=== PATIENT | female | born 1980 | race Caucasian/White ===

== ENCOUNTER 2018-07-07 18:15 | Outpatient (CLI) | payer MEDICAID ==
[~2018-07-07] VITALS: Ht 175.3 cm; Wt 100.6 kg
[2018-07-07 18:39] VITALS: Ht 175.3 cm; Wt 100.6 kg
[2018-07-07 18:40] VITALS: BP 142/88; PULSE 85; RESP 18
[2018-07-07] MEDS ORDERED: PNV11TAB PO (18:41)
--- NOTE | 2018-07-08 03:53 | PN ---
Triage Information Date/Time 07/08/18 Reason for visit: PIH Weeks of Gestation 36w2d /Para Diabetes: none Hypertention: induced Objective Vital Signs Date Temp Pulse Resp B/P (MAP) Pulse Ox O2 O2 Flow FiO2 Time Delivery Rate 07/07/18 98.9 85 18 142/88 18:40 (106) Heart Rate: 140's Heart Rate Comments CAT I Contractions: None Results/Medications Result Diagram: 07/07/18 1842 07/07/18 1842 Results 24 hrs Laboratory Tests Test 07/07/18 18:35 07/07/18 18:42 Urine Color YELLOW Urine Clarity SLIGHTLY CLOUDY A Urine pH 7.0 Urine Specific Nelson 1.005 Urine Ketones NEGATIVE Urine Nitrite NEGATIVE Urine Bilirubin NEGATIVE Urine Urobilinogen NEGATIVE Urine Leukocyte Esterase TRACE A Urine Microscopic RBC 2 Urine Microscopic WBC 4 Urine Squamous Epithelial Cells MANY A Urine Bacteria MANY A Urine Hemoglobin NEGATIVE Urine Glucose NEGATIVE Urine Total Protein NEGATIVE White Blood Count 8.1 Red Blood Count 3.79 L Hemoglobin 11.9 L Hematocrit 35.0 L Mean Corpuscular Volume 92.3 Mean Corpuscular Hemoglobin 31.4 Mean Corpuscular Hemoglobin Concent 34.0 Red Cell Distribution Width 13.3 Platelet Count 244 Mean Platelet Volume 9.6 Immature Granulocytes % 0.900 H Neutrophils % 78.9 H Lymphocytes % 12.7 L Monocytes % 6.7 Eosinophils % 0.6 Basophils % 0.2 Nucleated Red Blood Cells % 0.0 Immature Granulocytes # 0.070 H Neutrophils # 6.4 Lymphocytes # 1.0 Monocytes # 0.5 Eosinophils # 0.1 Basophils # 0.0 Nucleated Red Blood Cells # 0.0 Prothrombin Time 12.5 Prothrombin Time Ratio 1.0 INR International Normalized Ratio 0.92 Activated Partial Thromboplast Time 25.5 Fibrinogen 472.0 H Sodium Level 139 Potassium Level 3.4 L Chloride Level 108 Carbon Dioxide Level 24 Anion Gap 7 Blood Urea Nitrogen 8 Creatinine 0.45 Est Glomerular Filtrat Rate mL/min > 60 Glucose Level 115 Uric Acid 4.2 Calcium Level 9.2 Total Bilirubin 0.3 Direct Bilirubin 0.00 Indirect Bilirubin 0.3 Aspartate Amino Transf (AST/SGOT) 22 Alanine Aminotransferase (ALT/SGPT) 16 Alkaline Phosphatase 103 Total Protein 6.4 Albumin 3.3 Globulin 3.10 Albumin/Globulin Ratio 1.06 Imaging Results BPP 09/15 CATARINA 10.6 Disposition: Discharge Assessment/Plan A IUP 36w2d R/o PIH P RTH in 3days for f/u JULIANNA SAHA MD July 08, 2018 03:53
--- NOTE | 2018-07-08 03:59 | TRIAGE ---
OB Triage Datetime Report Generated by CPN: 07/08/2018 03:59 Datetime: 07/07/2018 21:51 Labor Evaluation Frequency: IRREGULAR Monitor Mode: External Duration (sec)2399: 40-90 Quality: Mild Pattern: Normal: <= 5 Contractions in 10 Minutes Resting Tone Lantry: Relaxed Heart Rate FHR Baseline Rate: 130 Monitor Mode: External US Variability: Moderate 6-25 bpm Accelerations: 15X15 Decelerations: None Category: Category I Datetime: 07/07/2018 21:01 Labor Evaluation Frequency: IRREGULAR Monitor Mode: External Duration (sec)2399: 40-70 Quality: Mild Pattern: Normal: <= 5 Contractions in 10 Minutes Resting Tone Lantry: Relaxed Heart Rate FHR Baseline Rate: 130 Monitor Mode: External US Variability: Moderate 6-25 bpm Accelerations: None Decelerations: None Category: Category I Datetime: 07/07/2018 20:13 Stage of : OB Triage Datetime: 07/07/2018 20:00 Labor Evaluation Frequency: X1 Monitor Mode: External Duration (sec)2399: 80 Quality: Mild Pattern: Normal: <= 5 Contractions in 10 Minutes Resting Tone Lantry: Relaxed Monitor Mode: External US Comments: FHR INDETERMINATE. PT STATES BABY IS MOVING A LOT. Datetime: 07/07/2018 19:00 Labor Evaluation Frequency: NONE Monitor Mode: External Resting Tone Lantry: Relaxed Heart Rate FHR Baseline Rate: 135 Monitor Mode: External US Variability: Moderate 6-25 bpm Accelerations: 15X15 Decelerations: None Category: Category I Datetime: 07/07/2018 18:22 Stage of : OB Triage Assessment Type: Triage Maternal Assessment Level of Consciousness: Fully Conscious DTR's/Clonus: DTRs 2+; No Clonus Headache: Denies Blurred Vision: No Respiratory Effort: Unlabored; Regular Rhythm; Equal Expansion Breath Sounds, Left: Clear and Equal Breath Sounds, Right: Clear and Equal Nausea/Vomiting: Denies RUQ Epigastric Pain: Denies Facial Edema: None Temperature Route: Axillary Fall Risk Assessment History of Falling: (0) No Secondary Diagnosis: (0) No Ambulatory Aid: (0) Bedrest/Nurse Assist IV Therapy: (0) No Gait: (0) Normal/Bedrest/Immobile Mental Status: (0) Oriented to Own Ability Fall Score: 0 Fall Risk Score Definition: No Risk: No action required Labor Evaluation Frequency: 0 Monitor Mode: External Pattern: Normal: <= 5 Contractions in 10 Minutes Resting Tone Lantry: Relaxed Heart Rate FHR Baseline Rate: 135 Monitor Mode: External US Variability: Moderate 6-25 bpm Accelerations: 10X10 Decelerations: None Category: Category I Pain Assessment Pain Scale: 0 Pain Presence: None/Denies Pain Type: N/A Pain Goal: 3 Pain Relief Measures: Comfort Measures Datetime: 07/07/2018 18:20 EGA: 36.2 Datetime: 07/07/2018 18:18 Time of Arrival: 07/07/2018 18:00 Arrived By: Ambulatory Arrived From: Home Chief Complaint: GA 36.2 WKS - REFERRED FROM OFFICE TO R/O PIH, DENIES EPIGASTRIC PAIN, HAD A SMALL H/A AND BLURRY VISION EARLIER TODAY. DENIES LEAKING, BLEEDING OR UC'S Movement: Present Contractions: Denies/Absent Rupture of Membranes: Denies Vaginal Bleeding: None Vaginal Discharge: Denies Recent Sexual Intercouse: Denies Abdominal Trauma: Not Applicable Patient Complaints: Visual Disturbance Time Provider Notified: 07/07/2018 20:13 Provider Notified: MARIA A Initial Plan: MONITOR, JONATHON PANEL
== END 2018-07-07 22:15 | disposition home or self-care (01) ==
LOC: OBT 18:15 → L-D 18:16 → OBT 22:15
PROVIDERS: ATTEND Obstetrics & Gynecology
DX: O13.3 Gestational [pregnancy-induced] hypertension without significant proteinuria, third trimester (principal); O09.513 Supervision of elderly primigravida, third trimester; Z3A.36 36 weeks gestation of pregnancy
CPT/HCPCS: 76818; 80053; 81001; 84560; 85025; 85384; 85610; 85730; Z7500; G0463

== ENCOUNTER 2018-07-09 18:32 | Inpatient (IN) | payer MEDICAID ==
[~2018-07-09] VITALS: Ht 175.3 cm; Wt 100.7 kg
[~2018-07-09 18:32] MED LIST: PNV11TAB PO
[2018-07-09 18:41] VITALS: BP 164/88; PULSE 82; RESP 18
[2018-07-09 18:42] VITALS: Ht 175.3 cm; Wt 100.7 kg
--- NOTE | 2018-07-09 21:18 | HP ---
Date/Time of Note Date/Time of Note DATE: 07/09/18 TIME: 21:08 OB - History Hx of Present Free Text/Dictation 38 y.o. G1 with an IUP at 36w 4d who came in today for a f/u of PIH. Her 2st BP was 164/88 but the rest have been more in the 130-140's/80's. Pt has no WIN's, visual changes or epigastric pain. She was sent back for f/u BP's lab work but a 24 hour urine was not ordered. Pt's bP's during care had SBP's in the 130-140's and DBP's in the 80's. Pt's baby is breech and she has a large 16 cm right subserosal fibroid. Estimated Due Date: Aug 02, 2018 : 1 Para: 0 Care: Good Care Ultrasounds: Abnormal US findings (breech, 16 cm right subserosal fibroid) Obstetrical Complications: Gestational Hypertension (possible HTN all the time.) Medical Complications: Cardiovascular (Possible pregestational HTN.) Past Family/Social History * Past Medical, Surgical, Family and Obstetric Histories reviewed from chart. OB Admission Exam Vital Signs Vital Signs Vital Signs Date Temp Pulse Resp B/P (MAP) Pulse Ox O2 O2 Flow FiO2 Time Delivery Rate 07/09/18 98.3 82 18 164/88 Room Air 18:41 (113) Physical Exam HEENT: WNL Heart: Rhythm Normal Lungs: Clear Abdomen: WNL Extremities: Normal Reflexes: Normal Effacement: Other (deferred) Membranes: Intact Heart Rate: 120's Accelerations: Accelerations Present Decelerations: Prolonged Decelerations (all was fine but then pt had a decel to 60 bpm for at least a minute and possibly longer, as contact was lost at that point.) Varibility: Moderate Contractions on Admission: >10 Minutes Apart Last 72 hours Lab Results CBC & BMP 07/09/18 19:01 Liver Function Test 07/09/18 19:01 Alanine Aminotransferase (ALT/SGPT) 18 Albumin 3.3 Alkaline Phosphatase 113 Aspartate Amino Transf (AST/SGOT) 22 Direct Bilirubin 0.00 Total Protein 6.8 OB Assessment/Plan Other Assessment: Single prolonged decel. Mild PIH. Other plan: Continued observation overnight. Will start her 24 hour urine collection. LORI WALLS MD Jul 09, 2018 21:18
--- NOTE | 2018-07-10 01:35 | TRIAGE ---
OB Triage Datetime Report Generated by CPN: 07/10/2018 01:35 Datetime: 07/09/2018 20:55 Arrived From: Home Movement: Present Rupture of Membranes: Denies Vaginal Bleeding: None Vaginal Discharge: Denies Recent Sexual Intercouse: Denies Abdominal Trauma: Not Applicable Provider Notified: REIHE Datetime: 07/09/2018 20:52 Monitor Mode: External US Datetime: 07/09/2018 20:11 Monitor Mode: External US Datetime: 07/09/2018 20:10 Monitor Mode: External Datetime: 07/09/2018 20:08 Monitor Mode: External US Datetime: 07/09/2018 20:07 Monitor Mode: External Monitor Mode: External US Datetime: 07/09/2018 20:05 Interventions: Oxygen Applied Monitor Mode: External US Comments: o2 applied by c. placido RN Datetime: 07/09/2018 20:03 Monitor Mode: External US Datetime: 07/09/2018 20:02 Interventions: Side to Side Monitor Mode: External US Decelerations: Variable Datetime: 07/09/2018 19:39 Monitor Mode: External Monitor Mode: External US Datetime: 07/09/2018 19:37 Monitor Mode: External US Datetime: 07/09/2018 19:34 Monitor Mode: External Monitor Mode: External US Datetime: 07/09/2018 19:33 Monitor Mode: External US Datetime: 07/09/2018 19:11 Time of Arrival: 07/09/2018 18:29 EGA: 36.4 Arrived By: Ambulatory Arrived From: Home Chief Complaint: here for follow up PIH work up Movement: Present Contractions: Denies/Absent Rupture of Membranes: Denies Vaginal Bleeding: None Vaginal Discharge: Denies Recent Sexual Intercouse: Denies Abdominal Trauma: Not Applicable Patient Complaints: None Time Provider Notified: 07/09/2018 19:30 Provider Notified: KAVITA Initial Plan: EFM, BPP/CATARINA, PIH LABS - orders given by Dr. Pierre on 07/07/18 Datetime: 07/09/2018 19:08 Stage of : OB Triage Temperature Route: Oral Pain Scale: 0 Pain Presence: None/Denies Pain Type: N/A Datetime: 07/09/2018 19:04 Monitor Mode: External US Datetime: 07/09/2018 18:53 Assessment Type: Triage Level of Consciousness: Fully Conscious DTR's/Clonus: DTRs 2+; No Clonus Headache: Denies Blurred Vision: No Respiratory Effort: Unlabored; Regular Rhythm; Equal Expansion Breath Sounds, Left: Clear and Equal Breath Sounds, Right: Clear and Equal Nausea/Vomiting: Denies RUQ Epigastric Pain: Denies Lower Extremities Edema: None Degree: None Upper Extremities Edema: None Degree: None Facial Edema: None History of Falling: (0) No Secondary Diagnosis: (0) No Ambulatory Aid: (0) Bedrest/Nurse Assist IV Therapy: (0) No Gait: (0) Normal/Bedrest/Immobile Mental Status: (0) Oriented to Own Ability Fall Score: 0 Fall Risk Score Definition: No Risk: No action required Datetime: 07/09/2018 18:39 Stage of : OB Triage Datetime: 07/07/2018 18:22 Fall Score: 0 Fall Risk Score Definition: No Risk: No action required Datetime: 07/07/2018 18:20 EGA: 36.2 Movement: Present Contractions: Denies/Absent Rupture of Membranes: Denies Recent Sexual Intercouse: Denies Abdominal Trauma: Not Applicable
[2018-07-10] MEDS ORDERED: CARBOPROST 250 MCG INJ ONE (07:00)
[2018-07-10] MEDS ORDERED: PHENYLephrine (100 MCG/ML) 10ML SYG ONE (07:00)
[2018-07-10] MEDS ORDERED: AL HYDROX/MG HYDROX/SIMETH 30 ML CUP PO PRN (07:00)
[2018-07-10] MEDS ORDERED: ACETAMINOPHEN 500 MG TAB PO PRN (07:00)
[2018-07-10] MEDS: PRENATAL VITAMIN PO SCH (08:57)
[2018-07-10] MEDS: FERROUS SULFATE (EC) 325 MG TAB PO SCH (08:57)
[2018-07-10] MEDS: SENNA TAB PO SCH (08:58)
[2018-07-10] MEDS ORDERED: MAGNESIUM SULFATE 4 GM/100 ML 100 ML IVPB ONE ×3 (16:30)
--- NOTE | 2018-07-10 16:32 | QN ---
Documentation Comment 36+wks GA with chronic HTN NSt Reassuring [place] No CTXs Pelvic Deferred BP 150s-170s/90s NO Headache No blurry vision No epigastric pain --->Mg started --->Case D/w and delivery is recommended --->As the position is Breach,She will have a primary c/section -->JANETO AIME US M.D. Jul 10, 2018 16:31
[2018-07-10] MEDS ORDERED: LACTATED RINGER'S 1,000 ML IV SCH (17:00)
[2018-07-10] MEDS: MAGNESIUM SULFATE 20 GM/500 ML 500 ML IV SCH (17:24)
--- NOTE | 2018-07-10 18:01 | QN ---
Documentation Comment D/w the patient doesn't need to have a c/section o emergency base and since she had luch at 1 pm,D/w the c/section will be done at 9 PM As I will leave at 7 PM and Gabby Phillips will assume the care at that time ,then she will perform the c/section AIME US M.D. Jul 10, 2018 18:01
[2018-07-10] MEDS ORDERED: MISOPROSTOL 200 MCG TAB PR PRN ×2 (19:00→23:30)
[2018-07-10] MEDS: LACTATED RINGER'S 1,000 ML IV SCH (19:00)
[2018-07-10] MEDS ORDERED: CEFAZOLIN 2 GM/50 ML (PMX) 50 ML IVPB SCH (19:00)
[2018-07-10] MEDS ORDERED: OXYTOCIN 30 UNITS/LR 500 ML IV PRN ×2 (19:00→23:30)
[2018-07-10] MEDS ORDERED: METHYLERGONOVINE 0.2 MG INJ IM PRN ×2 (19:00→23:30)
[2018-07-10] MEDS ORDERED: CARBOPROST 250 MCG INJ IM PRN ×2 (19:00→23:30)
[2018-07-10] MEDS ORDERED: ONDANSETRON 4 MG INJ IV STA (21:42)
[2018-07-10] MEDS ORDERED: CITRIC ACID/NA CITRATE 30 ML CUP ONE (21:46)
--- NOTE | 2018-07-10 21:53 | PREAC ---
Date/Time of Note Date/Time of Note DATE: 07/10/18 TIME: 21:52 Anesthesia Eval and Record Evaluation Time Pre-Procedure Interview DATE: 07/10/18 TIME: 21:52 Age 38 Sex female NPO: 8 hrs Preoperative diagnosis single live ; severe PIH Planned procedure primary c section Past Medical History Past Medical History: Includes : : (1), Para: (0), Gestational age: (36.5), PIH Surgery & Anesthesia Issues No known issue Meds Anticoagulation: No Beta Alexandru within 24 hr: No Reason Beta Alexandru not given: Pt. not on B-Alexandru Reported Medications [id number] ( 19) 1 Each Tablet, 1 TAB PO DAILY, TAB 07/07/18 Current Medications Prenat Multivit/ [place]/Iron/Folic Ac () 1 tab DAILY PO Last administered on 07/10/18at 08:57; Admin Dose 1 TAB; Start 07/10/18 at 09:00 Acetaminophen (Tylenol Tab) 650 mg Q4H PRN PO MILD PAIN(1-3)OR ELEVATED TEMP; Start 07/10/18 at 07:00 Al Hydrox/Mg Hydrox/Simethicone (Mag-Al Plus) 30 ml Q4H PRN PO GASTROINTESTINAL UPSET; Start 07/10/18 at 07:00 Ferrous Sulfate (Ferrous Sulfate (Ec)) 325 mg DAILY PO Last administered on 07/10/18at 08:57; Admin Dose 325 MG; Start 07/10/18 at 09:00 Senna (Senokot) 1 tab DAILY PO ; Start 07/10/18 at 09:00 Magnesium Sulfate 500 ml @ 50 mls/hr Q10H IV Last administered on 07/10/18at 17:24; Admin Dose 50 MLS/HR; Start 07/10/18 at 17:00 Lactated Ringer's 1,000 ml @ 75 mls/hr [id number] IV ; Start 07/10/18 at 17:30 Cefazolin Sodium/ Dextrose 50 ml @ 100 mls/hr ONCE IVPB ; Start 07/10/18 at 19:00 Oxytocin/Lactated Ringer's 500 ml @ 0 mls/hr ONCE PRN IV .VAGINAL BLEEDING; Start 07/10/18 at 19:00 Methylergonovine Maleate (Methergine) 0.2 mg ONCE PRN IM .VAGINAL BLEEDING; Start 07/10/18 at 19:00 Carboprost Tromethamine (Hemabate) 250 mcg ONCE PRN IM .VAGINAL BLEEDING; Start 07/10/18 at 19:00 Misoprostol (Cytotec) 1,000 mcg ONCE PRN AR .VAGINAL BLEEDING; Start 07/10/18 at 19:00 Citric Acid/ Sodium Citrate (Bicitra) 30 ml ONCE ONCE PO ; Start 07/10/18 at 22:00; Stop 07/10/18 at 22:01 Metoclopramide HCl (Reglan) 10 mg ONCE ONCE IM ; Start 07/10/18 at 22:00; Stop 07/10/18 at 22:01 Famotidine (Pepcid Iv) 20 mg ONCE ONCE IV ; Start 07/10/18 at 22:00; Stop 07/10/18 at 22:01 Meds reviewed: Yes Allergies Coded Allergies: No Known Allergy (Unverified , 07/07/18) Allergies Reviewed: Yes Labs/Studies Labs Reviewed: Reviewed by anesthesiologist Result Diagram: 07/10/18173907/10/181739 Laboratory Tests 07/10/18 17:40 test: N/A Pre-procedure Exam Last vitals Vital Signs Date Temp Pulse Resp B/P (MAP) Pulse Ox O2 O2 Flow FiO2 Time Delivery Rate 07/09/18 98.3 82 18 164/88 Room Air 18:41 (113) Airway: Adequate mouth opening, Adequate thyromental dist Mallampati: Mallampati II Teeth: Normal Lung: Normal Heart: Normal ASA Physical Status ASA physical status: 2 Emergency: None Planned Anesthetic Neuraxial: Spinal Planned Pain Management Sub-arachniod narcotics, Parenteral pain med Pre-operative Attestations Prior to commencing anesthesia and surgery, the patient was re-evaluated, there was verification of: *The patient's identity *The results of appropriate recent lab work and preoperative vital signs *The above evaluation not changing prior to induction *Anesthetic plan, risk benefits, alternative and complications discussed with patient/family; questions answered; patient/family understands, accepts and wishes to proceed. DANIEL HUNTER MD Jul 10, 2018 21:53
[2018-07-10] MEDS ORDERED: morphine SULFATE/PF (10 MG/10 ML) INJ ONE (21:54)
[2018-07-10] MEDS ORDERED: FAMOTIDINE 20 MG INJ IV ONE (22:00)
[2018-07-10] MEDS ORDERED: METOCLOPRAMIDE 10 MG INJ IM ONE (22:00)
[2018-07-10] MEDS ORDERED: CITRIC ACID/NA CITRATE 30 ML CUP PO ONE (22:00)
[2018-07-10] MEDS ORDERED: MEPERIDINE 25 MG INJ IV PRN (22:30)
[2018-07-10] MEDS ORDERED: DIPHENHYDRAMINE 50 MG INJ IV PRN (22:30)
[2018-07-10] MEDS ORDERED: EPHEDrine 25 MG/5 ML SYG ONE (22:30)
[2018-07-10] MEDS ORDERED: HYDROmorphONE 1 MG/5 ML IV SYRINGE IV PRN ×3 (22:30)
[2018-07-10] MEDS ORDERED: ONDANSETRON 4 MG INJ IV PRN (22:30)
[2018-07-10] MEDS ORDERED: PROCHLORPERAZINE 10 MG INJ IV PRN (22:30)
[2018-07-10] MEDS ORDERED: FENTAnyl 50 MCG/ML VIAL IV PRN ×3 (22:30)
[2018-07-10] MEDS ORDERED: KETOROLAC 30 MG INJ IV PRN (22:30)
[2018-07-10] MEDS ORDERED: LABETALOL HCL 20MG INJ IV PRN (22:30)
[2018-07-10] MEDS ORDERED: OXYTOCIN 30 UNITS/LR 500 ML IV ONE (22:38)
[2018-07-10] MEDS ORDERED: FENTAnyl 50 MCG/ML VIAL ONE (22:39)
--- NOTE | 2018-07-10 23:08 | QN ---
Documentation Comment 28 years old 1 with single intrauterine at 36 weeks and 5 days with preeclampsia with severe features. She also is complaining of upper abdominal pain. She states good movement. She denies nausea, vomiting, shortness of breath, chest pain, headache, visual changes, vaginal bleeding or LOF. On exam she has mild epigastric tenderness. blood pressure in the range of [id number] 890. heart rate is category 1. She has occasional uterine contractions. Labs, breech presentation, preeclampsia with severe features discussed in detail with patient and her family. They expressed understanding. All of their questions answered. The risk of delivery including but not limited to bleeding, infection, injury to other organs (bowel, bladder, ureter, vessels, nerves), injury to fetus, blood transfusion, blood transfusion related infection, risk of anesthesia, adhesion, needs for future , removal of uterus or any other indicated surgery was discussed with the patient and her family. She expressed understanding. All of her questions were answered. She signed the informed consent. PHYSICIAN'S VERIFICATION OF INFORMED CONSENT The patient and her family were counseled regarding the procedure, its indications, risks, potential complications and alternatives and any questions were answered. Consent was obtained. PLANNED PROCEDURE/TREATMENT: delivery with possible using vacuum/forceps and any other indicated surgery PHYSICIAN'S VERIFICATION OF INFORMED CONSENT FOR BLOOD TRANSFUSION: There is a reasonable possibility that blood transfusion will be necessary as a result of the patient's procedure. I have discussed the following with the patient/patient's legal associate sales representative: An explanation of the benefits and risks of the transfusion of blood or blood products and the possible alternativ es. All questions have been answered to the patient's satisfaction. INFORMED CONSENT:The patient has been informed of: The nature of the proposed care, treatment, services, medications, interventions or procedures. Potential benefits, risks or side effects, including potential problems related to recuperation. The likelihood of achieving care treatment and service goals. Reasonable alternatives to the proposed care, treatment and service. The relevant risks, benefits and side effects related to alternatives, including the possible results of not receiving care, treatment and services. When indicated, any limitations on the confidentiality of information learned from or about the patient. If appropriate, the risks, benefits and alternatives of the drugs to be used for sedation/analgesia including moderate sedation. If appropriate, patient has been provided information on the risks, benefits and alternatives to the transfusion of blood and/or blood products. If appropriate, patient has been provided information regarding the [employer] Blood Act. GEORGI HITCHCOCK Jul 10, 2018 23:08
[2018-07-10] MEDS ORDERED: OXYTOCIN 30 UNITS/LR 500 ML IV SCH (23:16)
--- NOTE | 2018-07-10 23:16 | OPR ---
Operative Report Planned Procedure Procedure date Jul 10, 2018 Procedure(s) Primary low transverse delivery Performed by see signature line [employer]: JULIANNA SAHA MD Anesthesiologist: DANIEL HUNTER MD Pre-procedure diagnosis 38 years old 1 with single intrauterine at 36 weeks and 5 days with breech presentation and preeclampsia with severe features. [id number] Anesthesia Type: [id number] spinal Post-Procedure Post-procedure diagnosis 38 years old 1 with single intrauterine at 36 weeks and 5 days with double footling breech presentation and preeclampsia with severe features. Findings 1. There was one 2 x 3 cm uterine leiomyoma above lower uterine segment on right side. Another 3x4 cm fundal uterine leiomyoma myoma which was palpated, not able to exteriorize the uterus due to enlarged uterus. Normal fallopian tubes and ovaries 2. Viable female in double footling breech presentation. 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 8 at one minute and 9 in 5 minutes. Weight: 5 lbs 13 oz- 2640 gram. Time of delivery: 22:24 3. Placenta with three vessel cord 4. Amniotic fluid - Clear Estimated Blood Loss: 600 - 700 mls Specimen(s) Placenta Grafts/Implant(s) none Complication(s) none Pt Condition post procedure: stable Disposition: PACU Procedure Description INDICATION AND HISTORY: A 38 years old 1 with single intrauterine at 36 weeks and 5 days with double footling breech presentation and preeclampsia with severe features.The risk of delivery including but not limited to bleeding, infection, injury to other organs (bowel, bladder, ureter, vessels, nerves), injury to fetus, blood transfusion, blood transfusion related infection, risk of anesthesia, adhesion, needs for future , removal of uterus or any other indicated surgery was discussed with the patient and her family. She expressed understanding. All of her questions were answered. She signed the informed consent. DESCRIPTION OF OPERATION: The patient was taken to the operating room, where she was identified and the procedure was verified. The patient received two gram of Ancef 30 minutes prior to surgery. Spinal anesthesia was placed. The patient placed in the dorsal supine position with a left tilt. The heart rate was 132 bpm. The patient was then prepped and draped in the normal sterile fashion. A Pfannenstiel skin incision was made and carried down to the fascia with Bovie. The fascia was incised in the midline and the fascial incision was carried laterally with Rausch scissors. The superior portion of the fascial incision was then grasped with Lacie clamps and tented up and dissected off the underlying rectus muscle with sharp dissection. The lower portion of the fascial incision was then made in a similar fashion. The rectus muscle was and the peritoneum was entered. The peritoneal incision was then stretched and a bladder blade was inserted. Then, an incision was made in the lower uterine segment in a transverse fashion with a knife and extended bluntly. The was delivered atraumatically in double footling breech presentation with the above findings. The umbilical cord was clamped and cut. The neonatology resuscitation team was present and the baby was handed to them. A cord blood sample was obtained for further evaluation. The placenta and membrane, which appeared normal were Removed. The uterus was exteriorized and cleared of all clot and debris. The uterus was then closed in a two layer fashion with 0- Monocryl. At the time of closure, hemostasis was noted. The gutters were irrigated. The peritoneum was reapproximated with 3-0 Vicryl. The muscle was reapproximated with 3-0 Vicryl. The fascia was approximated with 0-Vicryl in a running fashion. The subcutaneous tissue was re approximated with 3-0 vicryl. The skin was closed with 4-0 Monocryl. All instruments, sponges and needle counts were correct x3. The patient tolerated the procedure well. She transferred to the recovery room in stable condition. GEORGI HITCHCOCK Jul 10, 2018 23:16
[2018-07-10] MEDS ORDERED: METHYLERGONOVINE 0.2 MG TAB PO PRN (23:30)
[2018-07-10] MEDS ORDERED: LANOLIN HPA 1 PKT TOP PRN (23:30)
--- NOTE | 2018-07-10 23:49 | PAC ---
Date/Time of Note Date/Time of Note DATE: 07/10/18 TIME: 23:49 Post-Anesthesia Notes Post-Anesthesia Note Last documented vital signs Vital Signs Date Temp Pulse Resp B/P (MAP) Pulse Ox O2 O2 Flow FiO2 Time Delivery Rate 07/09/18 98.3 82 18 164/88 Room Air 18:41 (113) Activity: WNL Respiratory function: WNL Cardiovascular function: WNL Mental status: Baseline Pain reasonably controlled: Yes Hydration appropriate: Yes Nausea/Vomiting absent: Yes Comments BP: 139/67 HR: 99 RR: 15 T: 98.6 SaO2: 98% DANIEL HUNTER MD Jul 10, 2018 23:49
[2018-07-11] VITALS (26 sets, daily range): BP systolic 131–160; BP diastolic 59–90; PULSE 98–110; RESP 18–46
[2018-07-11] MEDS ORDERED: HYDROmorphONE 0.5 MG/0.5 ML SYG IV PRN ×2
[2018-07-11] MEDS ORDERED: NALOXONE (0.4 MG/ML) INJ IV PRN
[2018-07-11] MEDS ORDERED: ONDANSETRON 4 MG INJ IV PRN
[2018-07-11] MEDS ORDERED: KETOROLAC 30 MG INJ IV PRN
[2018-07-11] MEDS ORDERED: ZOLPIDEM 5 MG TAB PO PRN
[2018-07-11] MEDS ORDERED: DIPHENHYDRAMINE 50 MG INJ IV PRN
[2018-07-11] MEDS: DEXTROSE 5%-LR 1,000 ML IV SCH ×3 (03:28→15:16)
[2018-07-11] MEDS: MAGNESIUM SULFATE 20 GM/500 ML 500 ML IV SCH ×2 (04:23→14:02)
[2018-07-11] MEDS: IBUPROFEN 800 MG TAB PO SCH ×3 (06:00→22:00)
[2018-07-11] MEDS: LACTATED RINGER'S 1,000 ML IV SCH ×2 (06:50→07:53)
[2018-07-11] MEDS: FERROUS SULFATE (EC) 325 MG TAB PO SCH (08:51)
[2018-07-11] MEDS: SENNA TAB PO SCH (08:51)
[2018-07-11] MEDS: SENNA/DOCUSATE NA (8.6MG/50MG) TAB PO SCH ×2 (08:51→21:08)
[2018-07-11] MEDS: PRENATAL VITAMIN PO SCH (08:51)
[2018-07-11] MEDS ORDERED: HYDROCODONE/APAP (5/325) TAB NGT PRN (11:00)
[2018-07-11] MEDS ORDERED: DIPHTH/TET/ACEL PERTUSS (ADULT) 0.5 ML VIAL IM* ONE (11:00)
[2018-07-11] MEDS: HYDROCODONE/APAP (5/325) TAB GTB SCH ×2 (14:00→22:00)
--- NOTE | 2018-07-11 15:15 | QN ---
Documentation Comment Postop day #1 Status post primary for breech presentation and preeclampsia with severe features Patient stable and afebrile She is currently on magnesium sulfate 2 g/h Walton catheter in place Vital signs stable VS - Last 72 Hours, by Label Date Temp Pulse Resp B/P (MAP) Pulse Ox O2 O2 Flow FiO2 Time Delivery Rate 07/11/18 98 18 132/78 99 Room Air 13:30 (96) 07/11/18 98.3 98 18 135/72 98 Room Air 12:30 (93) 07/11/18 18 131/72 97 Room Air 11:30 (91) 07/11/18 98.0 100 18 135/77 98 Room Air 10:24 (96) 07/11/18 98 20 138/75 100 Room Air 09:30 (96) 07/11/18 98.2 100 18 139/78 98 Room Air 08:30 (98) 07/11/18 98.0 100 18 153/90 98 Room Air 07:30 (111) 07/11/18 98.2 108 46 136/70 Room Air 06:45 (92) 07/11/18 98.0 18 137/75 94 05:45 (95) 07/11/18 98.2 18 140/66 04:45 (90) 07/11/18 98.2 110 18 137/65 94 03:45 (89) 07/11/18 98.4 18 136/62 96 02:45 (86) 07/11/18 98.4 106 18 138/66 95 Room Air 01:45 (90) 07/11/18 103 18 139/59 96 Room Air 01:30 (85) 07/11/18 100 20 149/69 Room Air 01:15 (95) 07/11/18 98.4 102 20 146/70 98 Room Air 01:01 (95) 07/11/18 100 18 145/65 Room Air 00:30 (91) 07/11/18 98.4 104 18 151/64 96 Room Air 00:15 (93) 07/09/18 98.3 82 18 164/88 Room Air 18:41 (113) Hematology - 72 Hrs Test 07/09/18 19:01 07/10/18 17:40 07/11/18 07:32 Hematocrit 35.0 % (37.0-47.0) 34.8 % (37.0-47.0) 31.1 % (37.0-47.0) L L L Hemoglobin 11.8 12.0 10.6 g/dl (12.0-16.0) L g/dl (12.0-16.0) g/dl (12.0-16.0) L Mean Corpuscular 31.2 pg (29.0-33.0) 32.2 31.7 Hemoglobin pg (29.0-33.0) pg (29.0-33.0) Mean Corpuscular 33.7 34.5 34.1 Hemoglobin Concent g/dl (32.0-37.0) g/dl (32.0-37.0) g/dl (32.0-37.0) Mean Corpuscular 92.6 93.3 93.1 Volume fl (82.0-101.0) fl (82.0-101.0) fl (82.0-101.0) Mean Platelet 9.6 fl (7.4-10.4) 9.4 fl (7.4-10.4) 9.9 fl (7.4-10.4) Volume Platelet Count 251 259 275 10^3/UL (140-415) 10^3/UL (140-415) 10^3/UL (140-415) Red Blood Count 3.78 3.73 3.34 10^6/ul (4.20-5.40) 10^6/ul (4.20-5.40 10^6/ul (4.20-5.40 L ) L ) L Red Cell 13.2 % (11.5-14.5) 13.3 % (11.5-14.5) 13.3 % (11.5-14.5) Distribution Width White Blood Count 8.5 7.7 14.2 10^3/ul (4.8-10.8) 10^3/ul (4.8-10.8) 10^3/ul (4.8-10.8) #H Chemistry Test 07/09/18 19:01 07/10/18 17:40 07/11/18 00:23 07/11/18 07:32 Sodium Level 139 139 mmol/L (135-144 mmol/L (135-14 ) 4) Potassium 3.4 3.1 Level mmol/L (3.5-5.1 mmol/L (3.5-5. ) L 1) L Chloride Level 108 109 mmol/L (97-110) mmol/L (97-110 ) Carbon Dioxide 22 24 Level mmol/L (21-31) mmol/L (21-31) Anion Gap 9 (5-13) 6 (5-13) Blood Urea 6 mg/dl 7 mg/dl Nitrogen (7-20) L (7-20) Creatinine 0.44 0.55 mg/dl (0.44-1.0 mg/dl (0.44-1. 0) 00) Est Glomerular > 60 > 60 Filtrat mL/min (>60) mL/min (>60) Rate mL/min Glucose Level 113 91 mg/dl (70-220) mg/dl (70-220) Uric Acid 4.2 4.9 mg/dl (3.1-7.9) mg/dl (3.1-7.9 ) Calcium Level 9.2 9.2 mg/dl (8.4-10.2 mg/dl (8.4-10. ) 2) Total 0.3 0.4 Bilirubin mg/dl (0.2-1.3) mg/dl (0.2-1.3 ) Direct 0.00 0.00 Bilirubin mg/dl (0.00-0.2 mg/dl (0.00-0. 0) 20) Indirect 0.3 0.4 Bilirubin mg/dl (0-1.1) mg/dl (0-1.1) Aspartate Amino 22 IU/L (15-46) 27 Transf (AST/SGO IU/L (15-46) T) Alanine 18 IU/L (13-69) 23 Aminotransferas IU/L (13-69) e (ALT/SGPT) Alkaline 113 119 Phosphatase IU/L (42-121) IU/L (42-121) Total Protein 6.8 6.6 g/dl (6.1-8.1) g/dl (6.1-8.1) Albumin 3.3 3.3 g/dl (3.3-4.9) g/dl (3.3-4.9) Globulin 3.50 3.30 g/dl (1.3-3.2) g/dl (1.3-3.2) H H Albumin/Globuli 0.94 1.00 n Ratio Magnesium 3.6 4.4 Level mg/dl (1.7-2.5 mg/dl (1.7-2.5 ) H ) H Test 07/11/18 11:59 Magnesium 4.6 Level mg/dl (1.7-2.5) H Abdomen soft, fundus firm Dressing clean,dry,intact Extremities nontender Assessment and plan Patient stable and doing well DC magnesium sulfate after 24 hours tonight DC Walton catheter tonight Encouraged to ambulate Advance diet as tolerated Continue with routine postop care ROBERT MARTEL MD Jul 11, 2018 15:15
[2018-07-12] VITALS (8 sets, daily range): BP systolic 132–163; BP diastolic 65–94; PULSE 78–98; RESP 18–19
[2018-07-12] MEDS: MAGNESIUM HYDROXIDE 30ML CUP PO PRN (00:41)
[2018-07-12] MEDS: IBUPROFEN 800 MG TAB PO SCH ×3 (05:26→21:45)
[2018-07-12] MEDS: HYDROCODONE/APAP (5/325) TAB GTB SCH ×3 (05:27→21:46)
[2018-07-12] MEDS: SENNA/DOCUSATE NA (8.6MG/50MG) TAB PO SCH ×2 (08:47→21:45)
--- NOTE | 2018-07-12 20:30 | PN ---
Date/Time of Note Date/Time of Note DATE: 07/12/18 TIME: 20:29 OB Subjective Subjective Subjective POD#2 Patient is doing well. She denies nausea, vomiting, shortness of breath, chest pain, headache. She has been ambulating without difficulty, tolerating regular diet. Pain is well controlled on current medications OB Objective Objective Objective VS - Last 72 Hours, by Label Date Temp Pulse Resp B/P (MAP) Pulse Ox O2 O2 Flow FiO2 Time Delivery Rate 07/12/18 78 136/72 17:25 (93) 07/12/18 98.2 80 18 141/75 16:52 (97) 07/12/18 98.3 81 18 132/65 Room Air 07:45 (87) 07/12/18 98.6 85 18 134/78 Room Air 03:45 (96) 07/12/18 98.9 98 18 141/82 Room Air 00:15 (101) 07/11/18 107 18 140/78 22:00 (98) 07/11/18 110 18 150/79 21:00 (102) 07/11/18 99.3 108 18 150/88 97 20:00 (108) 07/11/18 101 18 150/80 Room Air 19:00 (103) 07/11/18 100 18 143/70 98 Room Air 18:20 (94) 07/11/18 18 149/78 97 Room Air 17:00 (101) 07/11/18 98.3 98 18 132/79 99 Room Air 15:50 (96) 07/11/18 19 132/70 99 Room Air 14:30 (90) 07/11/18 98 18 132/78 99 Room Air 13:30 (96) 07/11/18 98.3 98 18 135/72 98 Room Air 12:30 (93) 07/11/18 18 131/72 97 Room Air 11:30 (91) 07/11/18 98.0 100 18 135/77 98 Room Air 10:24 (96) 07/11/18 98 20 138/75 100 Room Air 09:30 (96) 07/11/18 98.2 100 18 139/78 98 Room Air 08:30 (98) 07/11/18 98.0 100 18 153/90 98 Room Air 07:30 (111) 07/11/18 98.2 108 46 136/70 Room Air 06:45 (92) 07/11/18 98.0 18 137/75 94 05:45 (95) 07/11/18 98.2 18 140/66 04:45 (90) 07/11/18 98.2 110 18 137/65 94 03:45 (89) 07/11/18 98.4 18 136/62 96 02:45 (86) 07/11/18 98.4 106 18 138/66 95 Room Air 01:45 (90) 07/11/18 103 18 139/59 96 Room Air 01:30 (85) 07/11/18 100 20 149/69 Room Air 01:15 (95) 07/11/18 98.4 102 20 146/70 98 Room Air 01:01 (95) 07/11/18 100 18 145/65 Room Air 00:30 (91) 07/11/18 98.4 104 18 151/64 96 Room Air 00:15 (93) General: AAO X 3, comfortable, NAD, appropriate mood and affect. Heart: RRR +S1, +S2, no murmurs. Lungs: Clear to auscultation (B/L), no rales, rhonchi or wheezing. ABD: +BS. Soft, non-tender. Uterus 2 cm below umbilicus Incision: Clear, dry, intact. No erythema, drainage or induration. Flank: No CVA tenderness (B/L) LE: Mild edema. No clubbing, cyanosis, thigh or calf tenderness (B/L). Homans 'sign is negative OB Assessment/Plan Other plan: 38 years old 1 para 0-1-0-1 with preeclampsia with severe features double footling breech presentation s/p primary delivery at 36 weeks and 5 days. POD#2 - AF, VSS - Baby is doing well, has congenital uterine anomaly. Baby is at bed side. She is bonding well. - Contraception methods with R/B/A/FR discussed - Continue care GEORGI HITCHCOCK Jul 12, 2018 20:30
[2018-07-12] MEDS: NIFEdipine (XL) 30 MG TAB PO SCH (23:06)
[2018-07-13] VITALS (9 sets, daily range): BP systolic 132–164; BP diastolic 65–84; PULSE 77–108; RESP 18–20
[2018-07-13] MEDS: IBUPROFEN 800 MG TAB PO SCH ×3 (05:26→23:01)
[2018-07-13] MEDS: HYDROCODONE/APAP (5/325) TAB GTB SCH ×3 (05:26→23:02)
[2018-07-13] MEDS ORDERED: MEASLES,MUMPS,RUBELLA VACCINE INJ SC* ONE (09:00)
[2018-07-13] MEDS ORDERED: DIPHTH/TET/ACEL PERTUSS (ADULT) 0.5 ML VIAL IM* ONE (09:00)
[2018-07-13] MEDS: MAGNESIUM HYDROXIDE 30ML CUP PO PRN ×2 (09:21→21:14)
[2018-07-13] MEDS: NIFEdipine (XL) 30 MG TAB PO SCH ×2 (09:25→21:14)
[2018-07-13] MEDS: SENNA/DOCUSATE NA (8.6MG/50MG) TAB PO SCH ×2 (09:26→21:14)
--- NOTE | 2018-07-13 22:24 | PN ---
Date/Time of Note Date/Time of Note DATE: 07/13/18 TIME: 22:22 OB Subjective Subjective Subjective POD#3 Patient is doing well. She denies nausea, vomiting, shortness of breath, chest pain, headache. She has been ambulating without difficulty, tolerating regular diet. Pain is well controlled on current medications OB Objective Objective Objective VS - Last 72 Hours, by Label Date Temp Pulse Resp B/P (MAP) Pulse Ox O2 O2 Flow FiO2 Time Delivery Rate 07/13/18 98.8 108 19 143/83 Room Air 15:20 (103) 07/13/18 20 132/65 Room Air 09:24 (87) 07/13/18 20 164/84 Room Air 09:23 (110) 07/13/18 98.2 83 18 138/76 Room Air 08:10 (96) 07/13/18 78 19 143/83 Room Air 04:00 (103) 07/13/18 98.4 82 20 143/83 Room Air 03:00 (103) 07/13/18 77 18 142/80 Room Air 02:00 (100) 07/13/18 80 20 148/84 Room Air 00:00 (105) 07/13/18 80 20 148/84 Room Air 00:00 (105) 07/12/18 88 19 156/94 Room Air 22:00 (114) 07/12/18 80 19 163/79 Room Air 21:00 (107) 07/12/18 98.1 78 19 163/79 Room Air 20:00 (107) 07/12/18 78 136/72 17:25 (93) 07/12/18 98.2 80 18 141/75 16:52 (97) 07/12/18 98.3 81 18 132/65 Room Air 07:45 (87) 07/12/18 98.6 85 18 134/78 Room Air 03:45 (96) 07/12/18 98.9 98 18 141/82 Room Air 00:15 (101) 07/11/18 107 18 140/78 22:00 (98) 07/11/18 110 18 150/79 21:00 (102) 07/11/18 99.3 108 18 150/88 97 20:00 (108) 07/11/18 101 18 150/80 Room Air 19:00 (103) 6/3/19 100 18 143/70 98 Room Air 18:20 (94) 07/11/18 18 149/78 97 Room Air 17:00 (101) 07/11/18 98.3 98 18 132/79 99 Room Air 15:50 (96) 07/11/18 19 132/70 99 Room Air 14:30 (90) 07/11/18 98 18 132/78 99 Room Air 13:30 (96) 07/11/18 98.3 98 18 135/72 98 Room Air 12:30 (93) 07/11/18 18 131/72 97 Room Air 11:30 (91) 07/11/18 98.0 100 18 135/77 98 Room Air 10:24 (96) 07/11/18 98 20 138/75 100 Room Air 09:30 (96) 07/11/18 98.2 100 18 139/78 98 Room Air 08:30 (98) 07/11/18 98.0 100 18 153/90 98 Room Air 07:30 (111) 07/11/18 98.2 108 46 136/70 Room Air 06:45 (92) 07/11/18 98.0 18 137/75 94 05:45 (95) 07/11/18 98.2 18 140/66 04:45 (90) 07/11/18 98.2 110 18 137/65 94 03:45 (89) 07/11/18 98.4 18 136/62 96 02:45 (86) 07/11/18 98.4 106 18 138/66 95 Room Air 01:45 (90) 07/11/18 103 18 139/59 96 Room Air 01:30 (85) 07/11/18 100 20 149/69 Room Air 01:15 (95) 07/11/18 98.4 102 20 146/70 98 Room Air 01:01 (95) 07/11/18 100 18 145/65 Room Air 00:30 (91) 07/11/18 98.4 104 18 151/64 96 Room Air 00:15 (93) General: AAO X 3, comfortable, NAD, appropriate mood and affect. ABD: +BS. Soft, non-tender. Uterus 2 cm below umbilicus Incision: Clear, dry, intact. No erythema, drainage or induration. Flank: No CVA tenderness (B/L) LE: Mild edema. No clubbing, cyanosis, thigh or calf tenderness (B/L). Homans 'sign is negative OB Assessment/Plan Other plan: 38 years old 1 para 0-1-0-1 with preeclampsia with severe features double footling breech presentation s/p primary delivery at 36 weeks and 5 days. POD#3 - AF, VSS - Baby is doing well, has congenital ear anomaly. Baby is at bed side. She is bonding well. - Contraception methods with R/B/A/FR discussed - Continue care - She had elevated blood pressure last night, Procardia 30 mg every 12 hours start - Discharge home tomorrow - Rx and instruction given - Follow up in one and 6 weeks GEORGI HITCHCOCK Jul 13, 2018 22:24
[2018-07-14 00:15] VITALS: BP 138/66; PULSE 89; RESP 21
[2018-07-14 04:45] VITALS: BP 137/76; PULSE 86; RESP 21
[2018-07-14] MEDS: IBUPROFEN 800 MG TAB PO SCH ×2 (06:17→14:50)
[2018-07-14] MEDS: HYDROCODONE/APAP (5/325) TAB GTB SCH ×2 (06:17→14:51)
[2018-07-14 08:00] VITALS: BP 130/70; PULSE 81; RESP 18
[2018-07-14] MEDS: SENNA/DOCUSATE NA (8.6MG/50MG) TAB PO SCH (09:47)
[2018-07-14] MEDS: NIFEdipine (XL) 30 MG TAB PO SCH (09:47)
[2018-07-14 12:54] VITALS: BP 144/76; PULSE 91; RESP 18
[2018-07-14] MEDS ORDERED: NIFEdipine (XL) 30 MG TAB PO ONE (13:00)
--- NOTE | 2018-07-14 14:31 | PN ---
Date/Time of Note Date/Time of Note DATE: 07/14/18 TIME: 14:28 OB Subjective Subjective Subjective Patient ambulating. Denies any headache, blurred vision or epigastric pain. Denies any complaint. Passed flatus. Had not had bowel movement yet. Breast and bottlefeeding. Vaginal bleeding decreased. OB Objective Objective Objective General appearance: Alert and oriented x4 does not appear to be in any acute distress Abdomen: Soft, uterus enlarged and irregular and firm. Fundus palpable at 3 cm above the umbilicus and irregular consistent with fibroid uterus No tenderness on examination of the abdomen noted No uterine tenderness Incision: Clean dry and intact Lungs: Clear to auscultation bilaterally CV: RRR Extremities: No calf tenderness, no click no edema no cord palpable VS - Last 72 Hours, by Label Date Temp Pulse Resp B/P (MAP) Pulse Ox O2 O2 Flow FiO2 Time Delivery Rate 07/14/18 98.4 91 18 144/76 Room Air 12:54 (98) 07/14/18 98.4 86 21 137/76 Room Air 04:45 (96) 07/14/18 89 21 138/66 Room Air 00:15 (90) 07/13/18 98.0 95 20 148/74 Room Air 20:40 (98) 07/13/18 98.8 108 19 143/83 Room Air 15:20 (103) 07/13/18 20 132/65 Room Air 09:24 (87) 07/13/18 20 164/84 Room Air 09:23 (110) 07/13/18 98.2 83 18 138/76 Room Air 08:10 (96) 07/13/18 78 19 143/83 Room Air 04:00 (103) 07/13/18 98.4 82 20 143/83 Room Air 03:00 (103) 07/13/18 77 18 142/80 Room Air 02:00 (100) 07/13/18 80 20 148/84 Room Air 00:00 (105) 07/13/18 80 20 148/84 Room Air 00:00 (105) 07/12/18 88 19 156/94 Room Air 22:00 (114) 07/12/18 80 19 163/79 Room Air 21:00 (107) 07/12/18 98.1 78 19 163/79 Room Air 20:00 (107) 6/4/19 78 136/72 17:25 (93) 07/12/18 98.2 80 18 141/75 16:52 (97) 07/12/18 98.3 81 18 132/65 Room Air 07:45 (87) 07/12/18 98.6 85 18 134/78 Room Air 03:45 (96) 07/12/18 98.9 98 18 141/82 Room Air 00:15 (101) 07/11/18 107 18 140/78 22:00 (98) 07/11/18 110 18 150/79 21:00 (102) 07/11/18 99.3 108 18 150/88 97 20:00 (108) 07/11/18 101 18 150/80 Room Air 19:00 (103) 07/11/18 100 18 143/70 98 Room Air 18:20 (94) 07/11/18 18 149/78 97 Room Air 17:00 (101) 07/11/18 98.3 98 18 132/79 99 Room Air 15:50 (96) 07/11/18 19 132/70 99 Room Air 14:30 (90) OB Assessment/Plan Other Assessment: Status post section Postoperative day #4 Severe preeclampsia, off of magnesium On nifedipine 30 mg p.o. twice daily 1 elevated blood pressure in the range of 160s over 100s noted. Patient is asymptomatic. Rest of the blood pressures below this range and between 130s to 140s Nifedipine changed to 60 mg extended release We will continue watch blood pressure closely Possible discharge this afternoon Discussed with the patient with a follow-up within 3 days after discharge from the hospital with primary OB office in 2 weeks and 6 weeks postop Strict preeclampsia precautions discussed with the patient. Postop instruction provided. Signs and symptoms of superimposed preeclampsia discussed as well. Patient verbalized understanding. All questions were answered to patient with satisfaction Enlarged fibroid uterus. Follow-up of fibroids after 6 weeks . EZEQUIEL SWEENEY MD Jul 14, 2018 14:31
[2018-07-14] MEDS: MAGNESIUM HYDROXIDE 30ML CUP PO PRN (14:55)
[2018-07-14 16:00] VITALS: BP 131/80; PULSE 104; RESP 18
--- NOTE | 2018-07-14 17:47 | DS ---
Date/Time of Note Date/Time of Note DATE: 07/14/18 TIME: 17:46 Discharge Summary Admission/Discharge Info Admit Date/Time Jul 09, 2018 at 21:28 Discharge Date/Time 07/14/2018 Discharge Diagnosis Preclampsia, delivered Patient Condition: Good Consults None Procedures Induction Hx of Present Illness 38 years old 1 with single intrauterine at 36 weeks and 5 days with breech presentation and preeclampsia with severe features, and 16 cm subserosal uterine fibroid, underwent section. Post course was otherwise uncomplicated. On postoperative day #4 patient was noted to be stable enough to be discharged home. She was ambulating. Tolerated regular diet. Passed flatus. Her vitals were stable. Her blood pressure was well controlled with nifedipine 60 mg extended release orally. She was breast and bottlefeeding. Hospital Course Complicated by severe PIH Underwent section Multiple enlarged fibroid uterus Anemia, postop, asymptomatic Home Meds Reported Medications [id number] ( 19) 1 Each Tablet, 1 TAB PO DAILY, TAB 07/07/18 Follow-up Plan Primary OB within 3 days after discharge from the hospital for monitoring and management of hypertension as well as to use 2 weeks and 6 weeks postop Primary Care Provider with Dr Guzman in 3 days after DC home adn 2 and 6 weeks post op Time spent on discharge: > 30 minutes EZEQUIEL SWEENEY MD Jul 14, 2018 17:47
--- NOTE | 2018-07-14 18:02 | PD.PPDC ---
INDUSTRIAL MAINTENANCE TECHNICIAN Discharge Instruction Provider Information Physician Information Dr. Santos Mustafaadian Condition [id number] Patient Condition: [id number] Good Activity/Restrictions [id number] Activity: [id number] Normal Activity Bedrest [id number] Restrictions: Tclzf9h No Exercising No Lifting No Driving Minimize Walking Minimize Stair-climbing No Sexual Activity Wound/Drain Care Instructions [id number] Wound/Drain Care [id number] Remove Steri Strips in 1 week Instructions: Wash with soap and water Follow-up Follow-up with Physician: 2, 3, Day/Days, Week/Weeks Provider Information: Santos Peters Follow-up in 3 days after discharge from the hospital and 2 weeks and 6 weeks postop Return to clinic for [id number] DIRECTOR OF MATERNITY SERVICES Instructions: [id number] Fever greater than 101 Chills Worsening abdominal pain Excessive Vaginal Bleeding More than 2 pads per hour Unable to tolerate diet [id number] OB Instructions: Ysxbx4p Breast Tenderness Depression Blurried Vision Headache [id number] Surgical Instructions: Hssql6h Incisional Drainage Incisional Redness EZEQUIEL SWEENEY MD Jul 14, 2018 18:02
[2018-07-15] MEDS ORDERED: NIFEdipine (XL) 60 MG TAB PO SCH (09:00)
--- NOTE | 2018-07-15 19:18 | DELSUM ---
Delivery Summary A-C Datetime Report Generated by CPN: 07/15/2018 19:18 DELIVERY PERSONNEL Hospitality Specialist: Canuto, Felicitas MATERNAL INFORMATION Delivery Anesthesia: Spinal Medications in Delivery: SEE ANESTHESIA FLOWSHEET Delivery QBL (ml): 600 Placenta Cultured: No Maternal Complications: Other Other Maternal Complications: PREECLAMPSIA LABOR SUMMARY EDC: 08/02/2018 00:00 No. Babies in Womb: 1 Attempted: No Labor Anesthesia: None LABOR INFORMATION Reason for Induction: Not Applicable Oxytocin: N/A Group B Beta Strep: Not Done Antibiotics # of Doses: 1 Antibiotics Time of Last Dose: 07/10/2018 21:55 Steroids Given: None Reason Steroids Not Administered: Not Applicable MEMBRANES Membranes Rupture Method: Artificial Rupture of Membranes: 07/10/2018 22:24 Length of Rupture (hr): 0.00 Amniotic Fluid Color: Bloody Amniotic Fluid Amount: Moderate Amniotic Fluid Odor: Normal STAGES OF LABOR Stage 3 hr: 0 Stage 3 min: 1 CSECTION DELIVERY Primary Indication: Severe PIH Secondary Indication: Breech Presentation CSection Urgency: Elective CSection Incidence: Primary Labor: No Labor Elective: Elective CSection Incision: Lower Uterine Transverse BABY A INFORMATION Delivery Date/Time: 07/10/2018 22:24 Method of Delivery: Born in Route : No : N/A Forceps: N/A Vacuum Extraction: N/A Shoulder Dystocia : N/A SHOULDER DYSTOCIA BABY A Infant Delivery Date/Time: 07/10/2018 22:24 PRESENTATION/POSITION BABY A Presentation: Breech Cephalic Presentation: N/A Vertex Position: N/A Breech Presentation: Double Footling PLACENTA INFORMATION BABY A Placenta Delivery Time : 07/10/2018 22:25 Placenta Method of Delivery: Manual Removal Placenta Status: Delivered SCORES BABY A Heart Rate 1 min: >100 bpm Resp Effort 1 min: Good Cry Reflex Irritability 1 min: Cough/Sneeze/Pulls Away Muscle Tone 1 min: Active Motion Color 1 min: Blue/Pale Resuscitation Effort 1 min: Tactile Stimulation SCORE 1 MIN: 8 Heart Rate 5 min: >100 bpm Resp Effort 5 min: Good Cry Reflex Irritability 5 min: Cough/Sneeze/Pulls Away Muscle Tone 5 min: Active Motion Color 5 min: Body Goltry, Extremit Blue Resuscitation Effort 5 min: Tactile Stimulation SCORE 5 MIN: 9 INFORMATION BABY A Gestational Age at Delivery: 36.5 Gestational Status: Late - 34- 36.6 Weeks Outcome : Liveborn Condition : Stable Infant Sex: Female IDENTIFICATION/MEDS BABY A ID Band Number: [id number] ID Band Location: Right Leg; Left Arm Sensor Applied: Yes Sensor Number: [id number] Sensor Location : Cord Clamp Vitamin K Given : Not Given Erythromycin Given: Not Given WEIGHT/LENGTH BABY A Infant Birthweight (gm): 2640 Infant Weight (lb): 5 Weight (oz): 13 Length (in): 19.00 Length (cm): 48.26 CORD INFORMATION BABY A No. Cord Vessels: 3 Nuchal Cord : N/A Cord Blood Taken: Yes Infant Suction: Mouth; Nose ASSESSMENT BABY A Infant Complications: None Physical Findings at Delivery: Other Physical Findings- Other: BILATERAL MALFORMATION OF EARS Respirations: Appears Normal Special Education Science Teacher/ALS Called : No Care By: Lida STEVENS Transferred To: Remains with Mother
== END 2018-07-14 19:02 | disposition home or self-care (01) | DRG 788 ==
LOC: L-D 18:32 → OBT 18:32 → L-D 21:28 → PP1 07-11 02:43
PROVIDERS: ADMIT Obstetrics & Gynecology; ATTEND Obstetrics & Gynecology
PROC: 10D00Z1 Extraction of Products of Conception, Low, Open Approach (ICD-10-PCS; principal; 2018-07-10 21:30)
DX: O60.13X0 Preterm labor second trimester with preterm delivery third trimester, not applicable or unspecified (principal); O32.1XX0 Maternal care for breech presentation, not applicable or unspecified; O34.13 Maternal care for benign tumor of corpus uteri, third trimester; O14.14 Severe pre-eclampsia complicating childbirth; Z3A.36 36 weeks gestation of pregnancy; Z37.0 Single live birth
CPT/HCPCS: 76818; 80053; 81003; 83735; 84560; 85025; 85384; 85610; 85730; 86592; 86850; 86900; 86901; 87340; 88307; 99464; G0463; J0690; J1885; J2274; J2370; J2405; J2590; J2765; J3010; J3475; J7120; J7121